=== PATIENT | male | born 1975 | race American Indian/Alaskan Native ===

== ENCOUNTER 2021-08-06 17:16 | Emergency (ER) | payer SELFPAY ==
[2021-08-06 23:41] LABS: Basophils % (Auto) 0.6 % (0.0-1.8); Eosinophils # (Auto) 0.1 K/mm3 (0.0-0.4); Eosinophils % (Auto) 2.5 % (0.0-4.3); Hemoglobin 13.1 gm/dl (11.8-15.2); Lymphocytes # (Auto) 2.1 K/mm3 (1.2-5.4); Lymphocytes % (Auto) 47.2 % (13.4-35.0); Mean Corpuscular HGB Conc 34 % (32-34); Mean Corpuscular Volume 88 fl (84-94); Monocytes # (Auto) 0.3 K/mm3 (0.0-0.8); Platelet Count 198 K/mm3 (140-440); Red Blood Count 4.45 M/mm3 (3.65-5.03); Red Cell Distribution Width 13.5 % (13.2-15.2)
[2021-08-06 23:52] LABS: Amphetamine Screen,Urine PRESUMPTIVE NEGATIVE; Benzodiazepines Screen,Urine PRESUMPTIVE NEGATIVE; Cannabinoid Screen,Urine PRESUMPTIVE NEGATIVE; Cocaine Screen,Urine PRESUMPTIVE POSITIVE; Methadone Screen,Urine PRESUMPTIVE NEGATIVE; Opiate Screen,Urine PRESUMPTIVE NEGATIVE
[2021-08-07 00:01] LABS: Mucus,Urine 2+ /HPF
[2021-08-07 00:07] LABS: Alanine Aminotransferase 10 units/L (7-56); Albumin 3.9 g/dL (3.9-5); Blood Urea Nitrogen 9 mg/dL (9-20); Calcium 8.5 mg/dL (8.4-10.2); Hemolysis Index 11
[2021-08-07 00:10] LABS: BUN/Creatinine Ratio 13
[2021-08-07 00:30] LABS: Color,Urine Yellow (Yellow)
[2021-08-07 00:31] LABS: Bilirubin,Urine NEG (Negative); Blood,Urine NEG (Negative); Protein,Urine <15 mg/dL mg/dL (Negative); Urobilinogen,Urine < 2.0 mg/dL (<2.0)
--- NOTE | 2021-08-07 07:46 | Consultation ---
History of Present Illness - Reason for Consult Consult date: 08/07/21 Reason for consult: SI - History of Present Psychiatric Illness The patient is a 46 year old male with history of bipolar and cocaine abuse. In my encounter with the patient, he is calm, alert and oriented x3. The patient states that " I want to get my life together." The patient admits using cocaine; unable to disclose how long, how often and the amount of cocaine he has been using; He reports several psychiatric inpatient admissions for detoxification. The patient denies any current suicidal ideation and denies hallucinations. PAST PSYCHIATRIC HISTORY Diagnoses: Bipolar, cocaine use Suicide attempts or Self-harm behavior: Denies Prior psychiatric hospitalizations: yes Substance Abuse history:Cocaine Previous psychiatric medications tried: Zoloft, Seroquel Outpatient treatment: Unknown SOCIAL HISTORY Marital Status: Single Living Arrangements: Lives with mother Employment Status: Unemployed Access to guns/weapons: Denies Education: 9th grade History of abuse: Denies Legal History: Denies ROS Constitutional: Negative for weight loss EMT: Negative for stridor Respiratory: Negative for cough or hemoptysis All other systems reviewed and are negative MENTAL STATUS EXAMINATION General Appearance: Dressed appropriately. Behavior: Calm and cooperative. Good eye contact. Mood: Depressed Affect:Congruent to stated mood Speech: Normal tone and pace Thought Process: Goal oriented Suicidal Ideation: Denies Homicidal Ideation: Denies Hallucinations: Denies Delusions: None elicited Insight and Judgment: Limited Memory/Cognition: Limited Assessment and Plan (1)HX Bipolar Disorder (2)Cocaine use Disorder Treatment Plan Continue home medications as previously prescribed. Start Zoloft 50mg po daily Start Seroquel 50mg po QHS Risks, benefits and alternatives of medications discussed with the patient, questions answered and consent obtained from patient. PSYCHOTHERAPY: Supportive psychotherapy provided MEDICAL: Per primary team DELIRIUM PRECAUTIONS: Please re-orient patient frequently, keep lights on during the day, and minimize benzodiazepines and opiates as these medications could worsen patient's confusion. 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 [employer] will provide patient with psychiatric out patient resourcec. Will sign off. Thank you for the consult. Please contact with any questions and/or concerns. Case discussed with Dr. Vyas who agrees with current disposition Medications and Allergies Medications and Allergies Allergies Allergy/AdvReac Type Severity Reaction Status Date / Time No Known Allergies Allergy Verified 08/06/21 17:59 Home Medications Medication Instructions Recorded Confirmed Last Taken Type Quetiapine Fumarate [SEROquel] 50 mg PO QHS 30 Days #30 08/07/21 Unknown Rx Sertraline [Zoloft] 50 mg PO QDAY 30 Days #30 08/07/21 Unknown Rx Mental Status Exam - Vital signs Last Vital Signs Temp 98.4 F 08/06/21 17:59 Pulse 73 08/06/21 17:59 Resp 16 08/06/21 17:59 BP 129/73 08/06/21 17:59 Pulse Ox 99 08/06/21 17:59 Results Result Diagrams: 08/06/21 22:59 08/06/21 22:59 Abnormal lab results 08/06/21 08/06/21 08/06/21 Range/Units 22:59 22:59 22:59 Lymph % (Auto) 47.2 H (13.4-35.0) % Chloride 108.3 H (98-107) mmol/L Creatinine 0.7 L (0.8-1.3) mg/dL Glucose 102 H (75-100) mg/dL Ur Specific [place] (1.003-1.030) Salicylates < 0.3 L (2.8-20.0) mg/dL Acetaminophen (10.0-30.0) ug/mL 08/06/21 08/06/21 Range/Units 22:59 23:26 Lymph % (Auto) (13.4-35.0) % Chloride (98-107) mmol/L Creatinine (0.8-1.3) mg/dL Glucose (75-100) mg/dL Ur Specific [place] 1.035 H (1.003-1.030) Salicylates (2.8-20.0) mg/dL Acetaminophen 5.0 L (10.0-30.0) ug/mL All other labs normal.
--- NOTE | 2021-08-07 08:57 | Event Note ---
Patient has been cleared by psychiatric team for discharge. Patient presented to the emergency department for medical clearance [place].
[2021-08-07 10:26] VITALS: BP 116/67
== END 2021-08-07 11:56 | disposition home or self-care (01) ==
LOC: ED 17:16
DX: Z00.00 Encounter for general adult medical examination without abnormal findings (principal); Z53.21 Procedure and treatment not carried out due to patient leaving prior to being seen by health care provider
CPT/HCPCS: 36415; 80053; 80307; 80320; 81001; 85025; 99283; G0480